=== PATIENT | female | born 1945 | race Caucasian/White ===

== ENCOUNTER 2018-10-08 19:23 | Inpatient (IN) | payer MEDICARE ==
[~2018-10-08] VITALS: Ht 152.4 cm; Wt 68.9 kg
--- NOTE | 2018-10-08 19:40 | NUR ---
Pt. MIQUEL PELAEZ for from [facility] for voluntary psych. admit, was treated at [facility] for PE, on [place], A/Ox4, speaks in clear and complete sentences, states she recently had thoughts of self-harm but has no plan to hurt herself at present, denies AH/VH, hx of depression, denies CP/SOB/DIOP/F/C/N/V/D, RR even and unlabored, VSS, bed in low position, observing pt. from nurse station,
[2018-10-08] MEDS ORDERED: ATOR10TA PO (19:49)
[2018-10-08] MEDS ORDERED: RIVA15TA2 PO (19:49)
[2018-10-08] MEDS ORDERED: BUSP30TA2 PO (19:49)
[2018-10-08] MEDS ORDERED: LORA0.5T48 PO (19:49)
[2018-10-08] MEDS ORDERED: LISI-603 PO (19:49)
[2018-10-08] MEDS ORDERED: ATEN25TA PO (19:49)
[2018-10-08] MEDS ORDERED: ESZO3TAB39 PO (19:49)
[2018-10-08] MEDS ORDERED: CITA20TA19 PO (19:49)
[2018-10-08] MEDS ORDERED: TRAM50TA2 PO (19:49)
--- NOTE | 2018-10-08 19:50 | NUR ---
Called [facility] for voluntary admit,
--- NOTE | 2018-10-08 20:05 | NUR ---
Pt. up to use restroom, walks w/ slow and steady gait,
--- NOTE | 2018-10-08 20:12 | NUR ---
Urine specimen collected and sent to lab, straw yellow, no blood noted,
[2018-10-08 20:14] LABS: *BILIRUBIN,URIN NEGATIVE (NEGATIVE); *CLARITY,URINE CLEAR (CLEAR); *COLOR,URINE YELLOW (YELLOW); *KETONES,URINE NEGATIVE (NEGATIVE); *UROBILINOGEN,URINE 0.2 E.U./dl (NORMAL); LEUKOCYTE ESTERASE ,URINE NEGATIVE (NEGATIVE); NITRITE, URINE NEGATIVE (NEGATIVE); PH,URINE 6.5 (5.0-8.0); UGLUCOSE NEGATIVE (NEGATIVE)
[2018-10-08 20:15] LABS: *BLOOD, URINE TRACE (NEGATIVE)
--- NOTE | 2018-10-08 20:19 | NUR ---
Called Art for voluntary admit, awaiting eval.
[2018-10-08 20:21] LABS: MUCUS,URINE FEW /LPF (0-FEW); SQUAMOUS EPITHELIAL CELL,UR FEW /HPF (NONE SEEN); WBC,URINE 0-3 /HPF (0-3)
--- NOTE | 2018-10-08 21:10 | NUR ---
Art (SSIS ARCHITECT) at bedside.
--- NOTE | 2018-10-08 21:23 | NUR ---
Art RN GERIATRIC at bedside for eval.,
[2018-10-08] MEDS ORDERED: MAGNESIUM HYDROXIDE 30 ML LIQUID UDC PO PRN (22:30)
[2018-10-08] MEDS ORDERED: ZOLPIDEM 5 MG TABLET PO PRN (22:30)
[2018-10-08] MEDS ORDERED: MAG HYDROX/AL HYDROX/SIMETH 30 ML LIQUID UDC PO PRN (22:30)
--- NOTE | 2018-10-08 22:44 | NUR ---
Pt. personal meds inventoried, personal belongings list completed, MRSA swab collected and sent to lab,
[2018-10-08 22:45] VITALS: BP 188/77
--- NOTE | 2018-10-08 22:53 | NUR ---
Pt. taken off unit via wheelchair by Matteo GARCIA, all belongings w/ pt., NAD
--- NOTE | 2018-10-08 23:00 | NUR ---
ADMISSION NOTE: 73YEAR OLD FEMALE BIB ER STAFF TO [facility]IA [facility] . PT ADMITTED ON 5150 FOR DTS. ACCORDING TO THE HOLD, PT IS DEPRESSED AND SUICIDAL WITH A PLAN TO JUMP OFF A BUILDING.PT HAS A LONG HISTORY OF MAJOR DEPRESSIVE DISORDER. UPON FACE TO FACE ASSESSMENT. APPEARS TO REFLECT WHAT IS WRITTEN ON THE HOLD. ADVISEMENT AND PATIENT RIGHTS HANDBOOK GIVEN TO PT. A+OX3 UPON ADMISSION TO [facility]. PATIENT STATES:"I WANT TO GET OUT OF HERE". PT DENIES SUICIDAL IDEATION. AT START OF ADMISSION PROCESS PT WAS CALM AND COOPERATIVE THEN BECAME AGITATED AND REFUSE TO SIGN BELONGING LIST. EXHIBITS BLUNTED AFFECT AND IS CIRCUMSTANTIAL IN THOUGHT PROCESS. BELONGINGS INVENTORIED AND PLACED IN UNIT LOCKER. PT INSIST TO KEEP HER FITBIT , NECKLACES, RINGS AND BRACELETS WITH HER. SKIN ASSESSMENT COMPLETED WITH DAIRY TRUCK DRIVER. THERE'S SCAB ON HER LEFT THIGH AND A SCAB ON RIGHT LEG. PT HAVE DRY SKIN ON THE LEGS AND EDEMA ON LEGS PITTING+1. GROUP HOME ASSESSMENT DONE. SHE WAS ANXIOUS AND REQUIRED REDIRECTION FROM STAFF. SAFETY PROTOCOL INITIATED.PT DR. PAGE AND KATEY LEVY,ANDREEA NOTIFIED OF ADMISSION, ORDERS RECEIVED, MEDICATIONS RECONCILED.
--- NOTE | 2018-10-08 23:01 | NUR ---
PT REFUSED TO TAKE OFF HER NECKLACES DESPITE [facility] STAFF TOLD HER THE UNIT POLICY. PT AGITATED WHENEVER WE DISCUSSED WE NEED TO TAKE OFF HER NECKLACES.
[2018-10-08] MEDS: LORAZEPAM 0.5 MG TABLET PO PRN (23:35)
[2018-10-09 00:30] VITALS: BP 184/81
[2018-10-09] MEDS ORDERED: RIVAROXABAN 15 MG TABLET PO ONE (01:15)
[2018-10-09] MEDS ORDERED: ATENOLOL 25 MG TABLET PO ONE (01:15)
[2018-10-09] MEDS ORDERED: LISINOPRIL 20 MG TABLET PO ONE (01:15)
[2018-10-09] MEDS ORDERED: LORAZEPAM 2 MG/1 ML VIAL IM ONE (01:30)
[2018-10-09] MEDS ORDERED: ATENOLOL 25 MG TABLET ONE (01:42)
[2018-10-09] MEDS ORDERED: RIVAROXABAN 15 MG TABLET ONE (01:42)
[2018-10-09] MEDS: ACETAMINOPHEN 325 MG TABLET PO PRN (01:47)
--- NOTE | 2018-10-09 06:44 | NUR ---
PT SLEPT 3.30 HOURS. PT SHOWS NO SIGNS OF ACUTE DISTRESS. PT UNCOOPERATIVE WITH CARE. PT GIVEN ATIVAN AT 2335H AND 0210H BECAUSE PT AGITATED, PT YELLING, VERBALLY ABUSIVE TOWARDS STAFF. PT TOLERATED IT WELL. PT STABLE. SAFETY AND COMFORT PROVIDED. ALL NEEDS ARE MET. WILL ENDORSE ACCORDINGLY TO INCOMING NURSE FOR CONTINUITY OF CARE.
[2018-10-09 07:30] VITALS: BP 146/81
[2018-10-09] MEDS: ATENOLOL 25 MG TABLET PO SCH ×2 (09:12→20:36)
[2018-10-09] MEDS: LISINOPRIL 20 MG TABLET PO SCH ×2 (09:13→20:35)
[2018-10-09] MEDS: TRAMADOL HCL 50 MG TABLET PO PRN (09:22)
--- NOTE | 2018-10-09 11:18 | NUR ---
Gps/Feed Inspection Supervisor- Irritable, verbalized feelings of being frustrated, angry, claimed" they treat you like a prisoner here". Reviewed and informed patient she is in a locked facility at [facility], and we all have to follow Hospital policy and rules. Safety reviewed emphasized. Pent[employer] scapula was removed from patient this am w/ the presence of Ship Wirer for safety. Patient continue to verbalized frustration/anger .
--- NOTE | 2018-10-09 11:51 | NUR ---
Gps/Corporate Scheduler- Patient came walking to the front door of her room asking staff to help her walk to the bathroom, claimed she uses cane at home, offered to use FWW. Gait fairly steady, limited mobility per patient r/t to her arthritis, though she does not need any help when she was at home.
--- NOTE | 2018-10-09 13:03 | NUR ---
Initial Discharge Plan: Pt is currently homeless. Per pt, she is ambulatory with a cane but is in severe pain without pain medication, making it difficult for her to move around on her own. Pt. would like help securing an assisted living facility after discharge. plant worker will plan to discuss placement options with pt for discharge planning. plant worker will continue to work on a safe and proper discharge plan for pt.
[2018-10-09 13:17] LABS: BASOPHILS # (AUTO) 0.1 K/uL (0.0-8.0); BASOPHILS % (AUTO) 1.3 % (0.0-2.0); EOSINOPHILS # (AUTO) 0.3 K/uL (0.0-0.7); EOSINOPHILS % (AUTO) 2.9 % (0.0-7.0); HEMATOCRIT 40.5 % (31.2-41.9); HEMOGLOBIN 13.4 g/dL (10.9-14.3); LYMPHOCYTES # (AUTO) 1.8 K/uL (20.0-40.0); LYMPHOCYTES % (AUTO) 19.3 % (20.5-51.5); MEAN CORPUSCULAR HEMOGLOBIN 28.2 uug (24.7-32.8); MEAN CORPUSCULAR HGB CONC 33 g/dL (32.3-35.6); MEAN CORPUSCULAR VOLUME 85.2 fL (75.5-95.3); MONOCYTES # (AUTO) 0.6 K/uL (2.0-10.0); MONOCYTES % (AUTO) 6.6 % (0.0-11.0); NEUTROPHILS # (AUTO) 6.6 K/uL (1.8-8.9); NEUTROPHILS % (AUTO) 69.9 % (38.5-71.5); PLATELET COUNT (AUTO) 223 K/uL (179-408); RED BLOOD CELL COUNT(AUTO) 4.76 MIL/uL (3.63-4.92); WHITE BLOOD COUNT (AUTO) 9.5 K/uL (3.8-11.8)
[2018-10-09 13:19] LABS: CARBON DIOXIDE 22 mmol/L (21-32); CHLORIDE 102 mmol/L (98-107); CREATININE 0.6 mg/dL (0.6-1.3); GLUCOSE 126 mg/dL (74-106); POTASSIUM 4.1 mmol/L (3.5-5.1); UREA NITROGEN, BLOOD 13 mg/dL (7-18)
[2018-10-09] MEDS: LORAZEPAM 0.5 MG TABLET PO PRN (13:29)
[2018-10-09] MEDS: busPIRone 10 MG TABLET PO SCH ×2 (13:38→13:43)
[2018-10-09] MEDS: RIVAROXABAN 15 MG TABLET PO SCH ×2 (15:18→17:32)
--- NOTE | 2018-10-09 15:44 | NUR ---
Gps/Senior Electronics Engineer- Patient was provided access to her cell phone to be able to get phone numbers as well are messages (ok per Dr Stoddard).
[2018-10-09 16:00] VITALS: BP 178/78
[2018-10-09] MEDS: HYDROCODONE/APAP 10-325 MG TABLET PO PRN (17:29)
--- NOTE | 2018-10-09 17:30 | NUR ---
Gps/Director Database- Encouraged patient to use front wheel walker for safety. Does not want to eat dinner at this time , till shoulder pain subsided.Prn norco 10/325 mg 1 tab. po. was given.Will continue to monitor pain level
[2018-10-09 20:16] VITALS: BP 148/67
[2018-10-09] MEDS: CITALOPRAM 20 MG TABLET PO SCH (20:34)
[2018-10-09] MEDS: ATORVASTATIN 10 MG TABLET PO SCH (20:35)
[2018-10-09] MEDS: ESZOPICLONE 3 MG PO PRN (21:50)
[2018-10-10] MEDS: LORAZEPAM 0.5 MG TABLET PO PRN (00:28)
[2018-10-10] MEDS: ACETAMINOPHEN 325 MG TABLET PO PRN (00:29)
[2018-10-10] MEDS: HYDROCODONE/APAP 10-325 MG TABLET PO PRN ×4 (04:10→23:29)
[2018-10-10 07:30] VITALS: BP 120/63
[2018-10-10] MEDS: busPIRone 10 MG TABLET PO SCH ×2 (08:48→16:33)
[2018-10-10] MEDS: LISINOPRIL 20 MG TABLET PO SCH ×2 (08:48→20:01)
[2018-10-10] MEDS: ATENOLOL 25 MG TABLET PO SCH ×2 (08:49→20:00)
[2018-10-10] MEDS: RIVAROXABAN 15 MG TABLET PO SCH ×2 (09:45→16:36)
[2018-10-10 16:00] VITALS: BP 98/56
--- NOTE | 2018-10-10 19:45 | NUR ---
Received patient awake in bed, still complaining of pain, patient informed that pain medication not due yet to which she verbalized understanding. Patient is calm and cooperative. Will continue to monitor.
[2018-10-10] MEDS: ATORVASTATIN 10 MG TABLET PO SCH (20:00)
[2018-10-10] MEDS: CITALOPRAM 20 MG TABLET PO SCH (20:02)
[2018-10-10 20:56] VITALS: BP 180/91
[2018-10-10] MEDS: ESZOPICLONE 3 MG PO PRN (21:55)
[2018-10-11] MEDS: HYDROCODONE/APAP 10-325 MG TABLET PO PRN ×3 (05:34→21:01)
[2018-10-11 07:30] VITALS: BP 130/61
[2018-10-11] MEDS: busPIRone 10 MG TABLET PO SCH ×2 (08:15→17:50)
[2018-10-11] MEDS: LISINOPRIL 20 MG TABLET PO SCH ×2 (08:16→20:55)
[2018-10-11] MEDS: ATENOLOL 25 MG TABLET PO SCH ×2 (08:16→20:56)
[2018-10-11] MEDS: RIVAROXABAN 15 MG TABLET PO SCH ×2 (08:21→17:52)
[2018-10-11 16:06] VITALS: BP 158/79
--- NOTE | 2018-10-11 19:20 | NUR ---
RECEIVED PT AWAKE, ALERT AND ORIENTEDX3. PT SHOWS NO SIGNS OF ACUTE DISTRESS. PT PLEASANT WHEN APPROACHED. SAFETY AND COMFORT PROVIDED. WILL CONTINUE TO MONITOR.
[2018-10-11 20:52] VITALS: BP 140/74
[2018-10-11] MEDS: ATORVASTATIN 10 MG TABLET PO SCH (20:55)
[2018-10-11] MEDS: CITALOPRAM 20 MG TABLET PO SCH (20:57)
[2018-10-11] MEDS: ESZOPICLONE 3 MG PO PRN (23:20)
[2018-10-12] MEDS: LORAZEPAM 0.5 MG TABLET PO PRN (02:30)
[2018-10-12] MEDS: HYDROCODONE/APAP 10-325 MG TABLET PO PRN ×3 (03:45→18:12)
--- NOTE | 2018-10-12 06:30 | NUR ---
PT SLEPT 4.3 HOURS. PT SHOWS NO SIGNS OF ACUTE DISTRESS. PT COOPERATIVE WITH CARE.PT GIVEN 2101H NORCO AND 0345H FOR PAIN ON HER SHOULDERS. GIVEN 2320H LUNESTA. GIVEN 0230H PT BECOMING AGITATED BECAUSE OF HER ROOMMATE.PT REQUESTED . PT SLEPT AFTER TAKING THE ATIVAN. PT TOLERATED ALL THE PRN MEDICATIONS. SAFETY AND COMFORT PROVIDED. WILL ENDORSE ACCORDINGLY TO INCOMING NURSE FOR CONTINUITY OF CARE.
[2018-10-12 07:30] VITALS: BP 102/49
[2018-10-12] MEDS: busPIRone 10 MG TABLET PO SCH ×2 (08:54→16:46)
[2018-10-12] MEDS: LISINOPRIL 20 MG TABLET PO SCH ×2 (09:00→20:21)
[2018-10-12] MEDS: ATENOLOL 25 MG TABLET PO SCH ×2 (09:00→20:21)
[2018-10-12] MEDS: RIVAROXABAN 15 MG TABLET PO SCH ×2 (09:06→16:47)
[2018-10-12] MEDS: CITALOPRAM 20 MG TABLET PO SCH (09:17)
[2018-10-12 16:04] VITALS: BP 158/69
--- NOTE | 2018-10-12 16:53 | NUR ---
Firearms Report: animal care worker completed a submitted a [employer] firearms report for a 5150 danger to self certification. A copy of report has been placed in patient chart.
[2018-10-12 20:14] VITALS: BP 161/68
[2018-10-12] MEDS: ATORVASTATIN 10 MG TABLET PO SCH (20:21)
[2018-10-12] MEDS: ESZOPICLONE 3 MG PO PRN (23:22)
[2018-10-13] MEDS: HYDROCODONE/APAP 10-325 MG TABLET PO PRN ×4 (01:34→20:58)
[2018-10-13] MEDS: LORAZEPAM 0.5 MG TABLET PO PRN ×2 (05:44→10:57)
[2018-10-13 07:30] VITALS: BP 99/73
[2018-10-13] MEDS: CITALOPRAM 20 MG TABLET PO SCH (08:20)
[2018-10-13] MEDS: LISINOPRIL 20 MG TABLET PO SCH ×2 (08:20→20:57)
[2018-10-13] MEDS: busPIRone 10 MG TABLET PO SCH ×2 (08:20→16:55)
[2018-10-13] MEDS: ATENOLOL 25 MG TABLET PO SCH ×2 (08:20→20:57)
[2018-10-13] MEDS: RIVAROXABAN 15 MG TABLET PO SCH ×2 (08:21→16:56)
[2018-10-13 15:53] VITALS: BP 162/81
[2018-10-13 20:17] VITALS: BP 140/70
[2018-10-13] MEDS: ATORVASTATIN 10 MG TABLET PO SCH (20:57)
[2018-10-13] MEDS: ESZOPICLONE 3 MG PO PRN (22:43)
[2018-10-14] MEDS: HYDROCODONE/APAP 10-325 MG TABLET PO PRN ×4 (03:38→21:39)
--- NOTE | 2018-10-14 05:00 | NUR ---
received to care last night, pleasant upon approach.has multiple somatic complaints. PRN norco given at 2057 for bilateral shoulder pain, and at 337, for lower back pain. both times she reported good relief. she also had PRN lunesta at 2242, for insomnia. she is now awake. slept 3.5 hours total.
[2018-10-14] MEDS: LORAZEPAM 0.5 MG TABLET PO PRN ×2 (05:49→20:26)
--- NOTE | 2018-10-14 05:50 | NUR ---
PRN ativan, given for anxiety.
[2018-10-14 07:30] VITALS: BP 137/73
[2018-10-14] MEDS: CITALOPRAM 20 MG TABLET PO SCH (09:00)
[2018-10-14] MEDS: busPIRone 10 MG TABLET PO SCH ×2 (09:30→17:01)
[2018-10-14] MEDS: LISINOPRIL 20 MG TABLET PO SCH ×2 (09:32→21:12)
[2018-10-14] MEDS: ATENOLOL 25 MG TABLET PO SCH ×2 (09:32→21:17)
[2018-10-14] MEDS: RIVAROXABAN 15 MG TABLET PO SCH ×2 (09:37→17:00)
--- NOTE | 2018-10-14 15:53 | NUR ---
Discharge planning: cinder worker met with patient at bedside to discuss discharge planning and potential placement as patient is homeless. Per patient, her friends, Loren and Italo, have arranged and paid for an apartment for her in [place], [place]. However, patient states that she does not know how she will get to [place]. Patient currently has her car at the [facility] and a storage unit full of belongings that she is behind on payments for. Furthermore, patient has no financial capability as she has exhausted her money on hotels prior to hospitalization. Per patient, she has been working with her friends to get out to [place], however, they are expecting patient to be able to sell her car, clean out her storage unit, and then move to [place]. Patient at this time is feeling very overwhelmed and not sure what to do. cinder worker provided patient with brief emotional and supportive counseling. cinder worker facilitated conversation of possible placement options including fpc placement and independent living. Per patient, she does not want fpc placement as she wants to be able to leave facility to run errands and clean storage unit and then be able to return. Per patient, she is interested in an independent living, but currently does not have any funds. Patient would like placement in [place], however social work manager explained that placement there within her budget [$600/month] may not be possible. cinder worker will explore independent living options for patient and follow-up. cinder worker then called and spoke with patient friend, Loren [[phone]], regarding patient placement options. Per Loren, she confirmed that patient does have an apartment in [place] waiting for her after November 02 that is paid for. Loren states that patient friend, Italo, will be able to drive out from [place] to assist in taking some of her belongings and patient back to [place]. However, Loren states it would be up to patient to figure out her storage unit. cinder worker encourages Loren to try and help patient with storage unit as she has no other support system. Loren was somewhat agreeable. cinder worker informed Loren of patient current financial situation and its effect on her placement. Per Loren, she may have a friend in [place] who would be willing to help patient until November 02. Loren states she will contact this automotive service writer with updates. cinder worker to follow-up as needed.
[2018-10-14 16:00] VITALS: BP 143/74
[2018-10-14 20:27] VITALS: BP 126/55
[2018-10-14] MEDS: ATORVASTATIN 10 MG TABLET PO SCH (21:12)
--- NOTE | 2018-10-14 22:00 | NUR ---
received to care, lying in bed, pleasant upon approach. compliant with medications and staff direction. denies SI, but admits to being PRN ativan was given at 2025, for anxiety. at 2138 PRN norco was given for bilateral shoulder pain. as of 2199, she remains awake. states moderate relief from PRN medications.
[2018-10-14] MEDS: ESZOPICLONE 3 MG PO PRN (22:55)
--- NOTE | 2018-10-14 22:55 | NUR ---
PRN LUNESTA, GIVEN FOR INSOMNIA.
--- NOTE | 2018-10-15 01:02 | NUR ---
has been sleeping intermittently.
[2018-10-15] MEDS: HYDROCODONE/APAP 10-325 MG TABLET PO PRN ×3 (03:41→19:49)
[2018-10-15 07:30] VITALS: BP 108/60
[2018-10-15] MEDS: busPIRone 10 MG TABLET PO SCH ×2 (09:03→16:16)
[2018-10-15] MEDS: LISINOPRIL 20 MG TABLET PO SCH ×2 (09:04→20:46)
[2018-10-15] MEDS: ATENOLOL 25 MG TABLET PO SCH ×2 (09:05→20:46)
[2018-10-15] MEDS: RIVAROXABAN 15 MG TABLET PO SCH ×2 (09:08→16:17)
[2018-10-15] MEDS: CITALOPRAM 20 MG TABLET PO SCH (09:12)
[2018-10-15] MEDS: LORAZEPAM 0.5 MG TABLET PO PRN (09:16)
[2018-10-15 16:00] VITALS: BP 121/64
[2018-10-15 20:02] VITALS: BP 116/60
[2018-10-15] MEDS: ATORVASTATIN 10 MG TABLET PO SCH (20:46)
[2018-10-15] MEDS: ESZOPICLONE 3 MG PO PRN ×2 (20:47→22:39)
--- NOTE | 2018-10-15 22:00 | NUR ---
received to care, lying in bed, pleasant upon approach. compliant with medications and staff direction. denies SI, but admits to being depressed, and overwhelmed. emotional support was provided. at 1948 PRN norco was given for bilateral shoulder pain. as of 2199, she remains awake. states moderate relief from PRN medications. curently watching tv with peers. no distress noted.
--- NOTE | 2018-10-15 22:39 | NUR ---
went to bed. PRN lunesta, given for insomnia. will continue to monitor closely.
--- NOTE | 2018-10-15 23:30 | NUR ---
appears to be asleep. no distress noted.
[2018-10-16] MEDS: HYDROCODONE/APAP 10-325 MG TABLET PO PRN ×4 (02:13→23:35)
[2018-10-16] MEDS: LORAZEPAM 0.5 MG TABLET PO PRN ×2 (04:22→15:02)
--- NOTE | 2018-10-16 04:23 | NUR ---
PRN ATIVAN GIVEN FOR ANXIETY
[2018-10-16 07:30] VITALS: BP 141/63
[2018-10-16] MEDS: LISINOPRIL 20 MG TABLET PO SCH ×2 (09:20→20:07)
[2018-10-16] MEDS: RIVAROXABAN 15 MG TABLET PO SCH ×2 (09:21→17:26)
[2018-10-16] MEDS: ATENOLOL 25 MG TABLET PO SCH ×2 (09:22→20:07)
[2018-10-16] MEDS: busPIRone 10 MG TABLET PO SCH ×2 (09:22→17:19)
[2018-10-16] MEDS: CITALOPRAM 20 MG TABLET PO SCH (10:44)
[2018-10-16] MEDS: TRAMADOL HCL 50 MG TABLET PO PRN ×2 (11:07→11:11)
[2018-10-16 16:00] VITALS: BP 128/64
--- NOTE | 2018-10-16 17:35 | NUR ---
PT ASKED FOR PERSONAL CELL PHONE TO WRITE DOWN NUMBERS SHE NEEDED. STAFF REMOVED FROM SAFE AND PHONE GIVEN TO PT. PT NOTED TO BE LOOKING THROUGH PHONE NOT RELATING TO PHONE NUMBERS AND MAKING PERSONAL PHONE CALLS . WHEN AGAIN INSTRUCTED THAT CELL PHONE WAS GIVEN ONLY FOR HER TO WRITE DOWN NUMBERS, PT BEGAN GETTING IRATE, ACCUSING STAFF OF NOT LETTING HER USE HER PHONE FOR PERSONAL USE. PT THEN BEGAN WRITING DOWN PHONE NUMBERS AND DELETING VOICEMAILS. PHONE HAS BEEN CONFISCATED AND PLACED IN SAFE.
[2018-10-16 19:55] VITALS: BP 113/61
[2018-10-16] MEDS: ATORVASTATIN 10 MG TABLET PO SCH (20:07)
[2018-10-16] MEDS: ESZOPICLONE 3 MG PO PRN (21:01)
[2018-10-17] MEDS: LORAZEPAM 0.5 MG TABLET PO PRN ×2 (03:53→17:45)
[2018-10-17] MEDS: busPIRone 10 MG TABLET PO SCH ×2 (08:03→16:13)
[2018-10-17] MEDS: CITALOPRAM 20 MG TABLET PO SCH (08:03)
[2018-10-17] MEDS: HYDROCODONE/APAP 10-325 MG TABLET PO PRN ×3 (08:03→20:02)
[2018-10-17] MEDS: RIVAROXABAN 15 MG TABLET PO SCH ×2 (08:26→16:14)
[2018-10-17] MEDS: LISINOPRIL 20 MG TABLET PO SCH ×2 (08:26→20:43)
[2018-10-17] MEDS: ATENOLOL 25 MG TABLET PO SCH ×2 (08:27→20:43)
[2018-10-17 08:30] VITALS: BP 127/64
[2018-10-17 16:00] VITALS: BP 138/72
--- NOTE | 2018-10-17 18:19 | NUR ---
GPS:RECEIVED PATIENT AOX2-3, PATIENT VERBALIZES PAIN, WITH PAIN SCALE 8/10 PAIN MEDS GIVEN ORDERED AND NOTED IT WAS EFFECTIVE, PATIENT SEEK PAIN MEDICATION ON TIMELY BASIS, EASILY IRRITABLE DENIES SI AND HI , COMPLIANT WITH MEDICATION, WOUND AMBULATE WITH FWW , ON MONITORING FOR FALL RISK WILL CONTINUE MONITOR
[2018-10-17] MEDS: ATORVASTATIN 10 MG TABLET PO SCH (20:44)
[2018-10-17 21:11] VITALS: BP 132/60
[2018-10-17] MEDS: ESZOPICLONE 3 MG PO PRN (22:42)
[2018-10-18] MEDS: HYDROCODONE/APAP 10-325 MG TABLET PO PRN ×3 (02:19→19:46)
--- NOTE | 2018-10-18 06:01 | NUR ---
GPS: Remain calm and cooperative.took norco x2 for pain. slept 5:30 hrs after sleeping meds given. no agitation noted at this time. continue plan of acre.
[2018-10-18] MEDS: LORAZEPAM 0.5 MG TABLET PO PRN ×2 (06:55→19:22)
--- NOTE | 2018-10-18 06:55 | NUR ---
patient c/o anxiety. ativan 0.5 mg po given per patient requested.
[2018-10-18 07:30] VITALS: BP 122/63
[2018-10-18] MEDS: ATENOLOL 25 MG TABLET PO SCH ×2 (08:40→20:07)
[2018-10-18] MEDS: LISINOPRIL 20 MG TABLET PO SCH ×2 (08:40→20:09)
[2018-10-18] MEDS: busPIRone 10 MG TABLET PO SCH ×2 (08:40→17:02)
[2018-10-18] MEDS: RIVAROXABAN 15 MG TABLET PO SCH ×2 (08:41→17:03)
[2018-10-18] MEDS: CITALOPRAM 20 MG TABLET PO SCH (08:46)
[2018-10-18 16:00] VITALS: BP 117/60
[2018-10-18 19:54] VITALS: BP 167/59
[2018-10-18] MEDS: ATORVASTATIN 10 MG TABLET PO SCH (20:06)
[2018-10-18] MEDS: ESZOPICLONE 3 MG PO PRN (20:07)
[2018-10-19] MEDS: LORAZEPAM 0.5 MG TABLET PO PRN (01:19)
--- NOTE | 2018-10-19 01:23 | NUR ---
patient c/o anxiety. ativan 0.5 mg po given per patient requested.
--- NOTE | 2018-10-19 02:23 | NUR ---
patient resting in bed quitely. prn effective for agitation.
[2018-10-19] MEDS: HYDROCODONE/APAP 10-325 MG TABLET PO PRN ×4 (02:57→22:30)
--- NOTE | 2018-10-19 06:04 | NUR ---
GPS: Remain calm and cooperative.took norco x2 for pain. ativan x1 given for anxiety and effective. slept 7 hrs . no agitation noted at this time. continue plan of acre.
[2018-10-19 07:58] VITALS: BP 140/74
[2018-10-19] MEDS: busPIRone 10 MG TABLET PO SCH ×2 (08:43→16:38)
[2018-10-19] MEDS: CITALOPRAM 20 MG TABLET PO SCH (08:44)
[2018-10-19] MEDS: LISINOPRIL 20 MG TABLET PO SCH ×2 (08:45→20:16)
[2018-10-19] MEDS: ATENOLOL 25 MG TABLET PO SCH ×2 (08:45→20:16)
[2018-10-19] MEDS: RIVAROXABAN 15 MG TABLET PO SCH ×2 (08:46→16:39)
--- NOTE | 2018-10-19 12:18 | NUR ---
Social work note: LATE ENTRY for 10/14/2018: log chain worker met with patient at bedside to discuss discharge plan. Patient continues to be anxious about discharge and is unsure of what type of placement to choose. log chain worker provided patient with discharge plan choices of fdc or independent living. log chain worker facilitated conversation about risks and benefits of proposed discharge placements. Patient states she will think about choice and let this junior underwriter know when decision has been made. log chain worker to follow-up with patient on 10/19/2018. Addendum: 10/19/18 at 1238 by MELVIN JAIN CORRECTION: Late entry was for 10/16/2018
--- NOTE | 2018-10-19 14:44 | NUR ---
Discharge Planning: key worker followed up with patient regarding discharge plan. Patient would like to go to a care home facility. key worker informed patient that acceptance would depend on if she had a skilled need. Patient understanding and social science research assistant will begin to look for placement. key worker also called and left a voicemail for patient top case assembler, Chalino Martínez, at [facility] [[address] [place] [address]; ]. key worker awaiting call back.
--- NOTE | 2018-10-19 15:03 | NUR ---
Discharge planning: licensed master social worker faxed inquiry to [facility] [[id number] [place] [address]; ] and currently awaiting call back from facility on admission status.
[2018-10-19 15:54] VITALS: BP 147/84
[2018-10-19] MEDS: ATORVASTATIN 10 MG TABLET PO SCH (20:16)
[2018-10-19 20:36] VITALS: BP 130/70
--- NOTE | 2018-10-19 22:00 | NUR ---
received to care, lying in bed, pleasant upon approach. compliant with medications and staff direction. denies SI, but admits to being depressed. as of 2199, she remains awake. no distress noted.
--- NOTE | 2018-10-19 23:30 | NUR ---
PRN lunesta given for insomnia
[2018-10-19] MEDS: ESZOPICLONE 3 MG PO PRN (23:36)
--- NOTE | 2018-10-20 00:30 | NUR ---
appears to be asleep. no distress noted.
[2018-10-20] MEDS: LORAZEPAM 0.5 MG TABLET PO PRN (02:45)
--- NOTE | 2018-10-20 02:45 | NUR ---
PRN ATIVAN, given for ANXIETY
--- NOTE | 2018-10-20 06:00 | NUR ---
slept 6.0 hours total
[2018-10-20 07:30] VITALS: BP 122/73
[2018-10-20] MEDS: busPIRone 10 MG TABLET PO SCH ×2 (08:17→16:04)
[2018-10-20] MEDS: LISINOPRIL 20 MG TABLET PO SCH ×2 (08:17→20:23)
[2018-10-20] MEDS: RIVAROXABAN 15 MG TABLET PO SCH ×2 (08:18→16:05)
[2018-10-20] MEDS: ATENOLOL 25 MG TABLET PO SCH ×2 (08:18→20:23)
[2018-10-20] MEDS: HYDROCODONE/APAP 10-325 MG TABLET PO PRN ×3 (08:19→22:31)
[2018-10-20] MEDS: CITALOPRAM 20 MG TABLET PO SCH (08:27)
[2018-10-20 15:15] VITALS: BP 114/74
[2018-10-20] MEDS: ATORVASTATIN 10 MG TABLET PO SCH (20:23)
[2018-10-20 20:26] VITALS: BP 130/60
[2018-10-21] MEDS: ESZOPICLONE 3 MG PO PRN (00:21)
[2018-10-21] MEDS: LORAZEPAM 0.5 MG TABLET PO PRN (03:00)
[2018-10-21] MEDS: HYDROCODONE/APAP 10-325 MG TABLET PO PRN (06:13)
[2018-10-21 07:30] VITALS: BP 126/68
[2018-10-21] MEDS: CITALOPRAM 20 MG TABLET PO SCH (08:46)
[2018-10-21] MEDS: LISINOPRIL 20 MG TABLET PO SCH (08:46)
[2018-10-21 08:50] VITALS: BP 126/68
[2018-10-21] MEDS: ATENOLOL 25 MG TABLET PO SCH (08:50)
[2018-10-21] MEDS: busPIRone 10 MG TABLET PO SCH (08:50)
[2018-10-21] MEDS: RIVAROXABAN 15 MG TABLET PO SCH (08:51)
--- NOTE | 2018-10-21 09:08 | NUR ---
DC NOTE: Patient will be discharged to [facility] [[address] [place] [address]; ] and transportation will be provided by ambulance at 2:30pm. Please arrange ambulance transportation for this patient. Acceptance to facility was received by violeta Tejeda, who states they are ready to accept the patient today. Patient is AxOx4, denies suicidal ideation, is able to plan for self-care, and is agreeable with discharge plan. ball worker has called and spoken with patient friend, Loren [[phone]], who is aware and agreeable with discharge plan. Patient will be followed by Dr. George (promotions firm accounts manager) and Dr. Stoddard (psychiatrist) at the facility. Patient has also been provided with mental health resources including [facility] [ ], Mily Lozano [ ], and the National Suicide Prevention Lifeline [ ]. Patient is homeless and has been provided with the homeless resource packet. A copy of packet has been signed and placed in patient chart for reference. Patient has also signed and completed the homeless waiver form. A copy has been placed in patient chart.
--- NOTE | 2018-10-21 12:56 | NUR ---
SBAR discharged report given to [facility] - Ian/[facility] by the .
--- NOTE | 2018-10-21 15:04 | NUR ---
Ambulance to crop picker pt.Pt.medication was crop picker from pharmacy and belongings x2 from box was given back to the pt.VS stable,pt.denies any pain or distress.was d/c to SNF.
== END 2018-10-21 13:00 | DRG 885 ==
LOC: ER 19:26 → GPS 22:19
PROVIDERS: ADMIT Psychiatry & Neurology Psychiatry; ATTEND Nurse Practitioner Acute Care
DX: F33.2 Major depressive disorder, recurrent severe without psychotic features (principal); E44.0 Moderate protein-calorie malnutrition; Z59.0 Homelessness; Z79.01 Long term (current) use of anticoagulants; Z86.711 Personal history of pulmonary embolism; J44.9 Chronic obstructive pulmonary disease, unspecified; Z91.5 Personal history of self-harm; E66.9 Obesity, unspecified; Z68.29 Body mass index [BMI] 29.0-29.9, adult; Z71.3 Dietary counseling and surveillance; F60.89 Other specific personality disorders; F60.3 Borderline personality disorder; E78.5 Hyperlipidemia, unspecified; Z90.49 Acquired absence of other specified parts of digestive tract; Z87.891 Personal history of nicotine dependence; Z86.718 Personal history of other venous thrombosis and embolism; Z79.899 Other long term (current) drug therapy; I10 Essential (primary) hypertension; G89.29 Other chronic pain; F41.9 Anxiety disorder, unspecified
CPT/HCPCS: 36415; 85025; 93005; 97110; 97116; 97530; A4663; J2060